=== PATIENT | female | born 1990 | race Caucasian/White ===

== ENCOUNTER 2024-09-22 04:46 | Emergency (ER) | payer MEDICAID ==
[~2024-09-22] VITALS: Ht 152.4 cm; Wt 54.4 kg
[2024-09-22] MEDS: LORazepam 2 mg/ml vial IM ONE (07:36)
[2024-09-22] MEDS: ketorolac trometh 30MG/ML vial 30 MG/ML VIAL IM ONE (07:36)
[2024-09-22] MEDS: buprenorphine/naloxone 8MG-2MG SUBlingual film SL SCH (08:00)
[2024-09-22 08:40] LABS: BASOPHILS % (AUTO) 0.2 % (0-1); EOSINOPHILS % (AUTO) 0.2 % (0-6); HEMATOCRIT 37.9 % (35.0-45.0); HEMOGLOBIN 13.2 g/dl (12.0-16.0); LYMPHOCYTES # (AUTO) 0.8 X10'3 (1.1-4.8); LYMPHOCYTES % (AUTO) 8.5 % (21-51); MEAN CORPUSCULAR HEMOGLOBIN 32.1 PG (27.0-31.0); MEAN CORPUSCULAR VOLUME 91.9 FL (78-98); MEAN PLATELET VOLUME 7.3 FL (7.4-10.4); MONOCYTES # (AUTO) 0.3 X10'3 (0-0.9); MONOCYTES % (AUTO) 2.6 % (2-12); NEUTROPHILS # (AUTO) 8.5 X10'3 (1.8-7.7); NEUTROPHILS % (AUTO) 88.5 % (42-75); PLATELET COUNT 351 X10'3 (140-440); RED BLOOD COUNT 4.12 X10'6 (4.20-5.60); RED CELL DISTRIBUTION WIDTH 12.7 % (11.5-14.5); WHITE BLOOD COUNT 9.6 X10'3 (4.5-11.0)
[2024-09-22 09:03] LABS: ALANINE AMINOTRANSFERASE 22 U/L (12-78); ALBUMIN 4.1 G/DL (3.4-5.0); ALBUMIN/GLOBULIN RATIO 1.2 (1.1-1.5); ALKALINE PHOSPHATASE 44 IU/L (46-116); ANION GAP 10 (8-16); ASPARTATE AMINO TRANSFERASE 17 U/L (10-37); BILIRUBIN,TOTAL 0.6 MG/DL (0.1-1.0); BLOOD UREA NITROGEN 6 MG/DL (7-18); BUN/CREATININE RATIO 12.5 (10.0-20.0); CALCIUM 8.8 MG/DL (8.5-10.1); CHLORIDE 106 MMOL/L (99-107); CREATININE 0.48 MG/DL (0.40-0.90); MAGNESIUM 2.1 MG/DL (1.5-2.4); POTASSIUM 3.7 MMOL/L (3.5-5.1); SODIUM 138 MMOL/L (135-145); TOTAL CARBON DIOXIDE 21.6 MMOL/L (24-32); TOTAL PROTEIN 7.6 G/DL (6.4-8.2); eCRCL 119 ML/MIN; eGFR > 90 ML/MIN
[2024-09-22] MEDS: buprenorphine/naloxone 8MG-2MG SUBlingual film SL ONE (09:05)
[2024-09-22 09:42] VITALS: BP 145/89; PULSE 60; RESP 20; O2SAT 97
[2024-09-22] MEDS ORDERED: BUPR1FIL3 SL (09:44)
[2024-09-22 09:53] LABS: GLUCOSE 131 MG/DL (70-104)
[2024-09-22 10:09] VITALS: TEMP 98.5
== END 2024-09-22 10:10 | disposition home or self-care (01) ==
LOC: ER 04:47
DX: F11.23 Opioid dependence with withdrawal (principal); F17.200 Nicotine dependence, unspecified, uncomplicated
CPT/HCPCS: 36415; 80053; 83735; 85025; 96372; 99284; J1885; J2060

== ENCOUNTER 2025-04-18 17:18 | Emergency (ER) | payer MEDICAID ==
[~2025-04-18] VITALS: Ht 152.4 cm; Wt 53.0 kg
--- NOTE | 2025-04-18 19:53 | Physician Documentation ---
History of Present Illness ~ Chief Complaint: Medical Clearance Stated Complaint: MEDICAL CLEARANCE Time Seen by MD: 18:34 HPI Patient is seen today seeing she needs medical clearance to go to [facility] she will be withdrawing off of seven-hydroxymitragynine which is a concentrated extract of Kratom. Patient states she will need some comfort meds and also medical clearance. Patient currently denies any chest pain or shortness of breath or abdominal pain or nausea, vomiting, diarrhea. Tetanus within 5 years?: No Medication Reconciliation Allergies: Coded Allergies: No Known Allergies (Unverified , 04/18/25) Past Medical History Past Medical History: No Pertinent History Past Surgical History: no surgical history Alcohol Use: None Drug Use: heroin Physical Exam Vital Signs: Temperature: 98.2, Source: Temporal, Heart Rate: 73, Respiratory Rate: 16, BP: 128/77, Pulse Oximetry: 99, Weight: 53.000 Oxygen Flow Rate: 0 Progress Results/Orders Results/Orders Vital Signs 04/18/25 17:22 Temp 98.2 Pulse 73 Resp 16 B/P (MAP) 128/77 Pulse Ox 99 O2 Flow Rate 0 Medical Decision Making Findings Patient is seen today seeing she needs medical clearance to go to [facility] she will be withdrawing off of seven-hydroxymitragynine which is a concentrated extract of Kratom. Patient states she will need some comfort meds and also medical clearance. Patient currently denies any chest pain or shortness of breath or abdominal pain or nausea, vomiting, diarrhea. Patient was given prescription for clonidine 0.1 tablets 3 times a day as needed for opiate withdrawal, loperamide, Zofran, and ibuprofen. Patient is medically cleared for entrance into detox program at [facility]. Patient will return to ED with any worsening, concerning or changing symptoms. Departure Disposition: HOME / SELF CARE / HOMELESS Impression: Primary Impression: Opioid dependence, uncomplicated Additional Impression: Opiate withdrawal Condition: Stable Discharge Instructions: Medical Screening Exam, Opioid Withdrawal, Opioid Withdrawal Treatment Additional Instructions: Patient was given prescription for clonidine 0.1 tablets 3 times a day as needed for opiate withdrawal, loperamide, Zofran, and ibuprofen. Patient is medically cleared for entrance into detox program at [facility]. Patient will return to ED with any worsening, concerning or changing symptoms. Referrals: NO PRIMARY CARE PROVIDER (PCP) Prescriptions Ibuprofen (Ibuprofen) 800 Mg Tablet 1 TAB PO Q8H for pain for 10 Days, #30 TAB 0 Refills Prov: YANIV VIDES 04/18/25 ONDANSETRON ODT 4mg tablet (ONDANSETRON ODT) 4 Mg Tab.rapdis 4-8 MG PO BID for 7 Days, #28 TAB Prov: YANIV VIDES 04/18/25 Loperamide Hcl (Loperamide) 2 Mg Tablet 1-2 TAB PO Q4H for loose stool for 14 Days, #150 TAB 0 Refills Prov: YANIV VIDES 04/18/25 Clonidine HCl (Clonidine HCl) 0.1 Mg Tablet 1 TAB PO TID for 7 Days, #21 TAB 0 Refills Prov: YANIV VIDES 04/18/25 Signature Scribe Signature: No scribe Attestation: No scribe YANIV VIDES Apr 18, 2025 19:53
[2025-04-18] MEDS ORDERED: LOPE2TAB25 PO (19:59)
[2025-04-18] MEDS ORDERED: ONDA-243 PO (19:59)
[2025-04-18] MEDS ORDERED: CLON0.1T2 PO (19:59)
[2025-04-18] MEDS ORDERED: IBUP-1986 PO (19:59)
[2025-04-18 20:09] VITALS: BP 126/74; PULSE 70; RESP 18; TEMP 98.6; O2SAT 99
== END 2025-04-18 20:09 | disposition home or self-care (01) ==
LOC: ER 17:18
DX: F11.23 Opioid dependence with withdrawal (principal)
CPT/HCPCS: 99283; A6449